=== PATIENT | female | born 1950 | race Caucasian/White ===

== ENCOUNTER 2020-03-27 10:01 | Day surgery (SDC) | payer MEDICARE, BC ==
[2020-03-25 09:23] VITALS: BMI 29.0
[~2020-03-27 10:01] MED LIST: LACTATED RINGERS 1,000 ML IV SCH
[2020-03-27 10:28] VITALS: RESP 16; TEMP 97.5
[2020-03-27] MEDS ORDERED: PROPOFOL 10 MG/ML 20 ML VIAL IV ONE (11:12)
--- NOTE | 2020-03-27 11:44 | P.PCN ---
Date of Procedure: 03/27/20 Procedure(s) Performed: BRIEF HISTORY: Patient is a 69-year-old pleasant white female scheduled for an elective colonoscopy as a part of evaluation of abnormal CT colonoscopy. The patient had an incomplete colonoscopy several years ago and recently was noted to have positive cologuard:. She elected to have a CT colonography and it revealed 3 polyps in the colon and hence scheduled for an elective colonoscopy to evaluate further. PROCEDURE PERFORMED: Colonoscopy with snare polypectomy and Endo Clip . PREOPERATIVE DIAGNOSIS: : Polyps noted on CT colonography. IV sedation per Anesthesia. PROCEDURE: After informed consent was obtained, the patient, was brought into the endoscopy unit. IV sedation was administered by Anesthesia under continuous monitoring. Digital rectal examination was normal. Initially the Olympus CF-160 flexible video colonoscope was then inserted in the rectum, gradually advanced into the cecum without any difficulty. Careful examination was performed as the scope was gradually being withdrawn. Ileocecal valve and the appendiceal orifice were visualized and appeared normal. Prep was excellent. Mucosa of the cecum appeared normal. In the ascending colon there was a 1 cm broad-based polyp that was removed by piecemeal snare polypectomy. In the hepatic flexure there was a 7-8 mm polyp that was removed by snare polypectomy following which an Endo Clip was placed to prevent post-polypectomy. Rest of the, ascending colon, transverse colon, descending colon, sigmoid colon, and rectum appeared normal. Retroflexion was performed in the rectum and no lesions were seen. The patient tolerated the procedure well. IMPRESSION: 1 cm broad-based ascending colon polyp status post polypectomy 7-8 mm broad-based hepatic flexure polyp status post snare polypectomy followed by Endo Clip placement No polyps seen in the sigmoid colon RECOMMENDATIONS: Findings of this examination were discussed with the patient as well as a family. She was advised to follow with the biopsy results. If the biopsy shows an adenoma she can have a repeat colonoscopy in 3-5 years.
[2020-03-27 12:43] VITALS: BP 124/79; PULSE 81
== END 2020-03-27 12:33 | disposition home or self-care (01) ==
LOC: ORWHC2ENDO 10:01
PROVIDERS: ATTEND Internal Medicine Gastroenterology
DX: D12.2 Benign neoplasm of ascending colon (principal); D12.3 Benign neoplasm of transverse colon; M54.30 Sciatica, unspecified side; Z88.0 Allergy status to penicillin; Z88.5 Allergy status to narcotic agent; Z88.6 Allergy status to analgesic agent; Z79.1 Long term (current) use of non-steroidal anti-inflammatories (NSAID)
CPT/HCPCS: 88305; 45385; J2704; 45382

== ENCOUNTER → 2021-01-07 | Outpatient (CLI) | payer MEDICARE, BC ==
--- NOTE | 2021-01-07 13:29 | CT ---
EXAMINATION TYPE: CT abdomen pelvis wo con DATE OF EXAM: 01/07/2021 COMPARISON: HISTORY: Left sided pain with urination changes. CT DLP: 429.8 mGycm Automated exposure control for dose reduction was used. TECHNIQUE: Helical acquisition of images from the lung bases through the pelvis. FINDINGS: Lack of intravenous contrast could compromise sensitivity. LUNG BASES: No significant abnormality is appreciated. AORTA: No significant abnormality is appreciataed. LIVER/GB: Liver is enlarged. Gallbladder is within normal limits.. PANCREAS: Fatty replaced SPLEEN: No significant abnormality is seen. ADRENALS: No significant abnormality is seen. KIDNEYS: Punctate nonobstructive calculi are present within the right kidney, there is no evident ure teral calcification or hydronephrosis. REPRODUCTIVE ORGANS: No significant abnormality is seen. URINARY BLADDER: No significant abnormality is seen. BOWEL: No significant abnormality is seen. No evident appendicitis. FREE AIR: No Free Air is visible. ASCITES: None visible. PELVIC ADENOPATHY: None visualized. RETROPERITONEAL ADENOPATHY: No Retroperitoneal Adenopathy visible. OSSEOUS STRUCTURES: There is a spinal curvature. Degenerative disc changes are noted incidentally. IMPRESSION: NONOBSTRUCTIVE NEPHROLITHIASIS.
== END | disposition home or self-care (01) ==
LOC: RADCTMAIN 12:20
PROVIDERS: ATTEND Family Medicine
DX: Z09 Encounter for follow-up examination after completed treatment for conditions other than malignant neoplasm (principal); Z87.442 Personal history of urinary calculi; N20.0 Calculus of kidney
CPT/HCPCS: 74176

== ENCOUNTER → 2021-11-18 | Outpatient (CLI) | payer MEDICARE, BC ==
--- NOTE | 2021-11-18 09:45 | CT ---
EXAMINATION TYPE: CT angio chest DATE OF EXAM: 11/18/2021 COMPARISON: NONE HISTORY: Thoracic aorta aneurysm CT DLP: 415.80 mGycm. Automated Exposure Control for Dose Reduction was Utilized. CONTRAST: CTA scan of the thorax is performed without and with IV Contrast, patient injected with 100 ml mL of Isovue 370, aneurysm protocol. 3D reconstructed images are created on an independent workstation and reviewed. FINDINGS: LUNGS: Dependent atelectasis in the bilateral lower lungs. Mild posterior right basilar linear scarri ng and/or atelectasis. No suspicious nodules or masses. No pleural effusion or pneumothorax seen. MEDIASTINUM: Noncontrast images show no suspicious hyperdense material to suggest intramural hematoma . Satisfactory enhancement of the central pulmonary arteries is seen. Postcontrast images show ascen ding aorta measuring 2.9 cm and the root coronal image 36 and up to 2.9 cm in the ascending aorta. Th ere is bovine type arch which is normal variant. No significant plaque or stenosis. There are no grea ter than 1 cm hilar or mediastinal lymph nodes. No cardiomegaly or pericardial effusion is seen. OTHER: There is levoconvex scoliosis centered in the mid thoracic spine and reactive prominent dextro convex scoliosis centered in the mid lumbar spine. There is 3 to 4 mm calculus in the right kidney up per to midpole level coronal image 63. Small size hiatal hernia. IMPRESSION: No thoracic aortic aneurysm.
== END | disposition home or self-care (01) ==
LOC: RADCTMAIN 07:14
PROVIDERS: ATTEND Family Medicine
DX: I71.2 Thoracic aortic aneurysm, without rupture (principal)
CPT/HCPCS: 82565; 84520; 71275; 36415; Q9967

== ENCOUNTER → 2021-12-08 | Outpatient (CLI) | payer MEDICARE, BC ==
--- NOTE | 2021-12-08 13:06 | XR ---
Cervical spine and thoracic spine HISTORY: M99.01 M54.2 4 views of the cervical spine, 3 views of the thoracic spine submitted Cervical spine shows facet arthropathy change. Minimal retrolisthesis grade 1 C3-4, C4-5. There is mu ltilevel spondylosis. Loss of disc height is present at intervertebral levels C3-4, C4-5. Prevertebra l soft tissues are noted. Odontoid view is limited. Thoracic lumbar spine shows reversal S-shaped scoliosis. There is a rotatory component. Multilevel sp ondylosis is present. Loss of disc height is present at intervertebral levels. Bone mineralization is reduced. Anterior wedge compression deformity is present at the midthoracic spine with loss of heigh t of approximately 25% anteriorly and possibly T5 or 6. IMPRESSION: Degenerative disc disease, facet arthropathy, wedge compression deformity Lasix spine. Il iopsoas.
== END | disposition home or self-care (01) ==
LOC: RADXRMAIN 09:10
DX: M47.812 Spondylosis without myelopathy or radiculopathy, cervical region (principal); M47.816 Spondylosis without myelopathy or radiculopathy, lumbar region; M51.36 Other intervertebral disc degeneration, lumbar region; M43.8X5 Other specified deforming dorsopathies, thoracolumbar region
CPT/HCPCS: 72040; 72070

== ENCOUNTER → 2022-03-23 | Outpatient (CLI) | payer MEDICARE, BC ==
--- NOTE | 2022-03-23 08:56 | USB ---
Reason for Exam: Clinical finding. Risk Values: Chelsea 5 year model risk: 1.1%. NCI Lifetime model risk: 3.3%. Technique: Method: Whole Breast Handheld. Findings: The whole breast of both breasts, the axilla of both breasts and the retroareolar of both breasts were scanned. Simple appearing cyst left 6:00 breast measuring 0.6 cm. No additional solid or cystic masses seen within either breast.. Overall Assessment: Benign, BI-RAD 2 Management: Screening Mammogram of both breasts in 1 month. A clinical breast exam by your physician is recommended on an annual basis and results should be correlated with mammographic findings. Electronically signed and approved by: Elfego Yip M.D. Radiologis
== END | disposition home or self-care (01) ==
LOC: RADUSWWP 08:12
PROVIDERS: ATTEND Family Medicine
DX: N60.02 Solitary cyst of left breast (principal)

== ENCOUNTER → 2023-01-21 | Outpatient (CLI) | payer MEDICARE, BC ==
--- NOTE | 2023-01-21 17:44 | CA ---
Exercise Stress Test Report Name: Dorys Jackson Exam Date: 01/21/2023 09:00 Exam Location: [place] Stress Ht (in): 64 Wt (lb): 168 BSA: 1.82 Ordering Phys: Jaquan Ybarra MD Referring Phys: Nikki Herrmann PAC Technologist: Babatunde Valdviia Age: 72 Gender: F : 1950 Procedure CPT: Indications: Z82.49 FAMILY HX OF ISCHEM HEART DIS ICD-10 Codes: Patient History: Short of breath and palpitations Medications: Meds past 24 hrs: Pretest Chest Pain: STRESS TEST Ludwin Protocol Exercise Duration (min:sec): 06:[address] Depressions (mm): Angina Score: Harmon Score: Resting HR (bpm): 84 Peak HR (bpm): 142 Resting BP (mmHg): 159 / 82 Peak BP (mmHg): / 97 MPHR: 149 Target HR: 127 % MPHR: 95 METS: 8.3 Total Dose: Peak Dose: Atropine: Double Product: BP Response: Stress Termination: Reached target heart rate Stress Symptoms: Dyspnea Stress Summary: ECG ANALYSIS Resting ECG: Stress ECG: CONCLUSIONS Exercise stress test Baseline heart rate 60 beats a minute, Baseline blood pressure 160 201 102 mmHg 140-101 mmHg Patient exercised on a Ludwin protocol for 6 minutes 46 seconds achieving a peak heart rate 142 beats a minute. Peak blood pressure 280/97 mmHg There is no ECG was for ischemia Occasional PVCs noted Impression average exercise capacity Elevated blood pressure readings No ECG evidence for ischemia Dr. Jim Dobson MD (Electronically Signed) Final Date: 21 January 2023 17:43
== END | disposition home or self-care (01) ==
LOC: RADNMMAIN 08:32
PROVIDERS: ATTEND Family Medicine
DX: R03.0 Elevated blood-pressure reading, without diagnosis of hypertension (principal); Z82.49 Family history of ischemic heart disease and other diseases of the circulatory system
CPT/HCPCS: 93017

== ENCOUNTER → 2024-01-19 | Outpatient (CLI) | payer MEDICARE, BC ==
--- NOTE | 2024-01-19 14:50 | US ---
EXAMINATION TYPE: US kidneys/renal and bladder DATE OF EXAM: 01/19/2024 COMPARISON: NONE CLINICAL INDICATION: Female, 73 years old with history of R10.9 UNSPECIFIED ABDOMINAL PAIN; left side pain hx of stones EXAM MEASUREMENTS: Right Kidney: 10.5 x 3.5 x 3.6 cm Left Kidney: 11 x 3.9 x 3.7 cm Right Kidney: No hydronephrosis or masses seen Left Kidney: No hydronephrosis or masses seen Bladder: wnl Bilateral Jets seen: Yes There is no evidence for hydronephrosis at this point in time. No nephrolithiasis is seen. No stephania s are identified. The urinary bladder is anechoic. Bilateral ureteral jets are seen. IMPRESSION: No discrete abnormality is appreciated.
== END | disposition home or self-care (01) ==
LOC: RADUSWWP 13:37
PROVIDERS: ATTEND Family Medicine
DX: R10.12 Left upper quadrant pain (principal)
CPT/HCPCS: 76770